=== PATIENT | female | born 1960 | race Caucasian/White ===

== ENCOUNTER 2020-10-02 14:52 | Emergency (ER) | payer OTHER ==
[2020-10-02 15:54] LABS: HEMOGLOBIN 13.5 gm/dl (12.3-15.3); RED BLOOD COUNT 3.58 M/UL (4.00-5.10); WHITE BLOOD COUNT 4.6 K/UL (4.5-11.0)
[2020-10-02 16:34] LABS: BUN/CREATININE RATIO 13 (0-10)
[2020-10-02] MEDS ORDERED: CLEOCIN HCL300 MG PO (19:30)
== END 2020-10-02 20:27 | disposition home or self-care (01) ==
LOC: ER1 14:52
PROVIDERS: Emergency Medicine
DX: S66.002A Unspecified injury of long flexor muscle, fascia and tendon of left thumb at wrist and hand level, initial encounter (principal); S61.012A Laceration without foreign body of left thumb without damage to nail, initial encounter; I10 Essential (primary) hypertension; F10.129 Alcohol abuse with intoxication, unspecified; Z88.0 Allergy status to penicillin; Z86.79 Personal history of other diseases of the circulatory system; W45.8XXA Other foreign body or object entering through skin, initial encounter; Y92.009 Unspecified place in unspecified non-institutional (private) residence as the place of occurrence of the external cause; Y90.8 Blood alcohol level of 240 mg/100 ml or more; Z23 Encounter for immunization
CPT/HCPCS: 12002; 70450; 73130; 80053; 83690; 85025; 90471; 90715; 96365; 96366; 96368; 99284; G0480; J3411; J3475; J7030